=== PATIENT | female | born 1985 | race Asian ===

== ENCOUNTER 2017-03-09 00:15 | Inpatient (IN) | payer SELFPAY ==
[~2017-03-09] VITALS: Ht 170 cm; Wt 70.8 kg
[2017-03-09 00:30] VITALS: BP 115/83
[2017-03-09] MEDS ORDERED: NALBUPHINE HYDROCHLORIDE 10 MG/ML VIAL IVP PRN (00:45)
[2017-03-09] MEDS ORDERED: PROMETHAZINE 25 MG/ML VIAL IVP PRN (00:45)
[2017-03-09] MEDS ORDERED: LACTATED RINGERS 500 ML IV SCH (00:45)
[2017-03-09] MEDS ORDERED: OXYTOCIN 10 UNITS/ML VIAL IM SCH (00:45)
[2017-03-09 01:34] LABS: APPEARANCE,URINE CLEAR (CLEAR); BILIRUBIN,URINE NEGATIVE (NEGATIVE); BLOOD, URINE NEGATIVE (NEGATIVE); COLOR,URINE YELLOW (YELLOW); LEUKOCYTE ESTERASE ,URINE TRACE (NEGATIVE); NITRITE, URINE NEGATIVE (NEGATIVE); PROTEIN,URINE NEGATIVE (NEGATIVE); UGLUCOSE NEGATIVE (NEGATIVE); UROBILINOGEN,URINE 0.2 EU/dL (0.2 - 1)
[2017-03-09 01:45] LABS: RBC,URINE 0-5 (RARE) /HPF (0-5)
[2017-03-09] MEDS ORDERED: PREN-380 PO (01:45)
[2017-03-09 01:46] LABS: BACTERIA,URINE 2+ /HPF (None Seen); SQUAMOUS EPITHELIAL CELL,UR 4-10 (MOD) /LPF (0-3 (FEW))
[2017-03-09 02:57] LABS: BASOPHILS % (AUTO) 0.8 % (0.0-2.0); EOSINOPHILS # (AUTO) 0.1 K/uL (0-0.4); EOSINOPHILS % (AUTO) 1.1 % (0.0-4.0); HEMATOCRIT 39.5 % (36-48); HEMOGLOBIN 13.2 g/dL (12.0-16.0); LYMPHOCYTES # (AUTO) 1.4 K/uL (2.5-16.5); LYMPHOCYTES % (AUTO) 22.3 % (20.5-51.1); MEAN CORPUSCULAR HEMOGLOBIN 31 pg (27-31); MEAN CORPUSCULAR HGB CONC 33 g/dL (33-37); MEAN CORPUSCULAR VOLUME 93 fL (80-94); MONOCYTES # (AUTO) 0.5 K/uL (0.8-1.0); MONOCYTES % (AUTO) 7.6 % (1.7-9.3); NEUTROPHILS # (AUTO) 4.1 K/uL (1.8-7.7); NEUTROPHILS % (AUTO) 68.2 % (42.2-75.2); PLATELET COUNT (AUTO) 188 K/uL (140-450); RED BLOOD CELL COUNT(AUTO) 4.27 MIL/uL (4.20-5.40); RED CELL DISTRIBUTION WIDTH 13.2 % (11.6-13.7); WHITE BLOOD COUNT (AUTO) 6.1 K/uL (4.8-10.8)
[2017-03-09] MEDS ORDERED: AMPICILLIN 2,000 MG in NACL 0.9% 100 ML IV SCH (05:00)
[2017-03-09] MEDS: LACTATED RINGERS 1,000 ML IV SCH ×2 (05:06→22:27)
[2017-03-09] MEDS ORDERED: AMPICILLIN 2,000 MG VIAL ONE (05:32)
[2017-03-09] MEDS ORDERED: MISOPROSTOL 25 MCG TAB ONE ×2 (06:34→11:50)
[2017-03-09] MEDS ORDERED: MISOPROSTOL 25 MCG TAB VG PRN (07:00)
[2017-03-09] MEDS ORDERED: OXYTOCIN 20 UNITS/LR PREMIX 1,000 ML IV SCH (07:00)
[2017-03-09] MEDS: AMPICILLIN 1,000 MG in NACL 0.9% 50 ML IV SCH ×2 (09:30→22:01)
[2017-03-09] MEDS ORDERED: AMPICILLIN 1,000 MG VIAL ONE ×4 (09:32→22:02)
[2017-03-09] MEDS ORDERED: BUPIVACAINE 0.125%/NS PREMIX 250 ML ONE (10:40)
[2017-03-09] MEDS ORDERED: OXYTOCIN 20 UNITS/LR PREMIX 1,000 ML IV ONE (10:57)
[2017-03-09] MEDS ORDERED: ceFAZolin 1,000 MG VIAL ONE ×2 (23:32→23:38)
[2017-03-09] MEDS ORDERED: ePHEDrine 50 MG/ML VIAL ONE (23:32)
[2017-03-09] MEDS ORDERED: OXYTOCIN 10 UNITS/ML VIAL ONE (23:32)
[2017-03-09] MEDS ORDERED: SODIUM BICARBONATE 8.4% PFS 50 MEQ/50 ML SYR IVP ONE (23:38)
[2017-03-09] MEDS ORDERED: MORPHINE PRES FREE 10 MG/10 ML AMP IV ONE (23:38)
[2017-03-09] MEDS ORDERED: LIDOCAINE/EPI MPF 2%1:200000 10 ML VIAL INJ ONE (23:38)
[2017-03-09] MEDS ORDERED: CITRIC ACID/SODIUM CITRATE 30 ML UDC ONE (23:41)
[2017-03-10] MEDS ORDERED: CITRIC ACID/SODIUM CITRATE 30 ML UDC PO SCH
[2017-03-10] MEDS ORDERED: TRIAMCINOLONE 40 MG/ML 5ML VIAL ONE (00:18)
[2017-03-10] MEDS ORDERED: OXYTOCIN 10 UNITS/ML VIAL ONE (00:19)
[2017-03-10] MEDS ORDERED: SIMETHICONE 80 MG TAB.CHEW PO PRN (00:20)
[2017-03-10] MEDS ORDERED: OXYTOCIN 20 UNITS/LR PREMIX 1,000 ML IV SCH (00:20)
[2017-03-10] MEDS ORDERED: METHYLERGONOVINE 0.2 MG/ML AMP IM PRN (00:20)
[2017-03-10] MEDS ORDERED: MEASLES, MUMPS, AND RUBELLA 1 VIAL SQVAC PRN (00:20)
[2017-03-10] MEDS ORDERED: TRIMETHOBENZAMIDE 200 MG/2 ML SYR IM PRN (00:20)
[2017-03-10] MEDS ORDERED: IBUPROFEN 800 MG TAB PO PRN (00:20)
[2017-03-10] MEDS ORDERED: TEMAZEPAM 15 MG CAP PO PRN (00:20)
[2017-03-10] MEDS ORDERED: HYDROcodone/APAP 5/325 MG 1 TAB TAB PO PRN (00:20)
[2017-03-10] MEDS ORDERED: oxyCODONE/APAP 5/325 MG 1 TAB TAB PO PRN (00:20)
[2017-03-10] MEDS ORDERED: NALBUPHINE 10 MG/ML AMP IVP PRN (00:40)
[2017-03-10] MEDS ORDERED: ONDANSETRON 4 MG/2 ML VIAL IVP PRN ×2 (00:40)
[2017-03-10] MEDS ORDERED: NALOXONE 0.4 MG/ML VIAL IVP PRN ×3 (00:40)
[2017-03-10] MEDS ORDERED: KETOROLAC 60 MG/2 ML VIAL IM PRN (00:40)
[2017-03-10] MEDS ORDERED: diphenhydrAMINE 50 MG/ML VIAL IVP PRN (00:40)
[2017-03-10] MEDS ORDERED: ONDANSETRON 4 MG/2 ML VIAL ONE (01:05)
[2017-03-10] MEDS ORDERED: OXYTOCIN 20 UNITS/LR PREMIX 1,000 ML IV ONE (01:06)
--- NOTE | 2017-03-10 08:29 | NUR ---
PATIENT HAS BEEN SCREENED AND CATEGORIZED LOW NUTRITION RISK. PATIENT WILL BE SEEN WITHIN 7 DAYS OF ADMISSION. 03/16/[address]
[2017-03-10] MEDS: OXYTOCIN 20 UNITS/LR PREMIX 1,000 ML IV SCH ×2 (11:41→19:09)
[2017-03-10] MEDS: DOCUSATE SOD/SENNA 50/8.6 MG 1 TAB PO SCH (21:12)
[2017-03-11 06:11] LABS: BASOPHILS % (AUTO) 0.2 % (0.0-2.0); EOSINOPHILS # (AUTO) 0.1 K/uL (0-0.4); EOSINOPHILS % (AUTO) 0.7 % (0.0-4.0); HEMATOCRIT 38.5 % (36-48); LYMPHOCYTES # (AUTO) 0.9 K/uL (2.5-16.5); LYMPHOCYTES % (AUTO) 10.1 % (20.5-51.1); MEAN CORPUSCULAR HEMOGLOBIN 31 pg (27-31); MEAN CORPUSCULAR HGB CONC 34 g/dL (33-37); MEAN CORPUSCULAR VOLUME 92 fL (80-94); MONOCYTES # (AUTO) 0.5 K/uL (0.8-1.0); NEUTROPHILS # (AUTO) 7.3 K/uL (1.8-7.7); PLATELET COUNT (AUTO) 172 K/uL (140-450); RED BLOOD CELL COUNT(AUTO) 4.18 MIL/uL (4.20-5.40); RED CELL DISTRIBUTION WIDTH 13.2 % (11.6-13.7); WHITE BLOOD COUNT (AUTO) 8.8 K/uL (4.8-10.8)
[2017-03-11] MEDS: DOCUSATE SOD/SENNA 50/8.6 MG 1 TAB PO SCH (21:12)
== END 2017-03-12 14:45 | disposition home or self-care (01) | DRG 766 ==
LOC: MLD 00:15 → MFCC 03-10 01:52
PROVIDERS: ADMIT Obstetrics & Gynecology; ATTEND Obstetrics & Gynecology
PROC: 10D00Z1 Extraction of Products of Conception, Low, Open Approach (ICD-10-PCS; principal; 2017-03-10)
PROC: 3E0234Z Introduction of Serum, Toxoid and Vaccine into Muscle, Percutaneous Approach (ICD-10-PCS; 2017-03-10)
DX: O33.9 Maternal care for disproportion, unspecified (principal); O64.0XX0 Obstructed labor due to incomplete rotation of fetal head, not applicable or unspecified; O62.2 Other uterine inertia; Z37.0 Single live birth; Z3A.41 41 weeks gestation of pregnancy; Z23 Encounter for immunization
CPT/HCPCS: 36415; 51702; 59200; 81001; 85025; 86592; 86886; 86900; 86901; 87086; 87340; 87653-90; 90715; J0290; J0690; J2001; J2270; J2405; J2590; J3301; J3490; J7120